=== PATIENT | male | born 1975 | race Caucasian/White ===

== ENCOUNTER 2020-08-21 18:07 | Emergency (ER) | payer MEDICARE, MEDICAID, SELFPAY ==
[2020-08-21 18:49] VITALS: BP 159/92; PULSE 92; RESP 17; TEMP 36.8; O2SAT 98; BMI 21.4
[2020-08-21 20:35] VITALS: BP 166/91; PULSE 102; RESP 17; TEMP 36.7
--- NOTE | 2020-08-21 21:25 | ED_ITS ---
HPI - Animal Bite General Chief Complaint: Animal Bite Stated Complaint: dog bite on mouth Time Seen by Provider: 08/21/20 19:08 Source: patient Mode of arrival: ambulatory Limitations: no limitations History of Present Illness HPI narrative: 45-year-old male presenting to the ED after he was bit by a dog while walking in the park. Reports he was walking in the park with his friend who had his dog and the dog that was in the park tried to bite his friend's dog therefore him and his friend tried to separate the dogs in the dog that was in the park bit him on the lower lip/left cheek. Patient denies any other injuries complaints or concerns at this time. Reports he is not up-to-date on the tetanus vaccine. Reports he is unsure if the dog was up-to-date on the rabies. The dog ran away shortly after. Related Data Previous Rx's Medication Instructions Recorded amoxicillin-pot clavulanate 1 tab PO Q12H 14 Days #28 tab 08/21/20 [Augmentin] Allergies Allergy/AdvReac Type Severity Reaction Status Date / Time No Known Allergies Allergy Verified 08/21/20 19:08 Review of Systems Review of Systems: Constitutional : No Fever, No Chills, Cardiovascular : No Chest Pain, No SOB Respiratory : No Dyspnea Gastrointestinal : No abdominal pain Musculoskeletal : No Joint Swelling Skin : + skin laceration, No Foreign bodies, No rash, No surrounding erythema Neuro : No Weakness, No Numbness/tingling Psych : No SI/HI/thoughts of self injury Yes all other systems are reviewed and are negative [facility] Past Medical History Attestation statement: The following information was validated with the patient. Medical History No known health problems Social History Social History Smoking Status: Never smoker Use of substances other than those prescribed or required for medical reasons: No Advance Directives: No Advance Directives Information Provided: No Physical Exam Vital Signs: Vital Signs: Vital Signs Temp Pulse Resp BP Pulse Ox 08/21/20 20:35 98.0 F 102 H 17 166/91 H 08/21/20 18:49 98.3 F 92 17 159/92 H 98 Body Mass Index 21.4 vital signs have been reviewed as normal and appeared to be correct. Blood pressure normal. Heart rate normal. Respiration rate normal. Temperature normal. Oxygen saturation normal. Appearance: Alert. Oriented X3. No acute distress. Head: Normal external exam. Normocephalic. Atraumatic. No Street signs noted. No raccoon eyes noted Eyes: PERRLA. EOMI. Conjunctiva and sclera normal. Eyelids normal. ENT: EAC normal. TM's Normal. Pharynx normal. Uvula midline. Moist mucous membranes. No trismus noted. No drooling noted. No muffled voice noted. To right lower lip/upper chin area there was noted to be an irregular 1 cm laceration bleeding controlled. to the left side of the cheek there is also another 1 cm lack no foreign bodies bleeding controlled. Neck: Normal inspection. Neck supple. FROM. No adenopathy. Thyroid Normal. No meningeal signs. No neck mass noted. CVS: Normal heart rate and rhythm. Heart sound normal. No murmurs noted. Pulses normal throughout. Respiratory: No respiratory distress. Painless inspiration. Breath sounds normal. No wheezes/rales/rhonchi noted. Chest nontender. No accessory muscle usage noted or decreased air movement noted. Back: Full range of motion noted. Skin: Skin warm and dry. Normal skin color. Normal skin turgor. No rashes noted. Extremities: No lower extremity edema. Extremities exhibit normal range of motion. Extremities nontender. Neuro: Oriented X 3. No motor deficit. No sensory deficit. Reflexes normal. Course Course Course Narrative: Patient is now status post laceration repair with loose sutures placed to lower lip and left side of cheek. Patient started on Augmentin. Tetanus updated at this time. Rabies vaccine and immunoglobulin given at this time. Will DC home with instructions return in 5 days for suture removal and to return sooner if any new or worsening symptoms. Patient and friend at bedside understand and agree plan. Procedures Laceration Laceration 1: Site: lip Size (cm): 1 Description: irregular Depth: simple, single layer Local Anesthetic: lidocaine 1% Amount of anesthesia used (mL): 3 Pre-repair: wound explored, irrigated extensively and deep structures i ntact Skin layer closed with: nylon Size (cm): 5-0 Number of sutures: 3 Technique: simple, interrupted Laceration 2: Site: face Side (If applicable): left Size (cm): 1 Description: linear Depth: simple, single layer Local Anesthetic: lidocaine 1% Amount of anesthesia used (mL): 2 Pre-repair: wound explored, irrigated extensively and deep structures intact Skin layer closed with: nylon Size (cm): 5-0 Number of sutures: 1 Technique: simple, interrupted Discharge Plan Discharge Clinical Impression: Laceration Dog bite Qualifiers: Encounter type: initial encounter Qualified Code(s): W54.0XXA - Bitten by dog, initial encounter Patient Disposition: Home, Self-Care Instructions: Animal Bite (ED), Facial Laceration (ED) Prescriptions: New amoxicillin-pot clavulanate [Augmentin] 875-125 mg tablet 1 tab PO Q12H 14 Days Qty: 28 RF: 0 Referrals: Lottie Langston PA [Emergency Midlevel Provider] - 08/26/20 (for suture removal ) Print Language: Senegalese
[2020-08-21] MEDS: Rabies Vaccine (PCEC)/PF 1 ML VIAL IM (21:47)
[2020-08-21] MEDS: Rabies Immune Globulin/PF 1,500 UNIT/5 ML VIAL 1065.04 UNIT IM (21:49)
[2020-08-21] MEDS: Lidocaine HCl 1 % MPF 5 ML VIAL SUBCUT (21:52)
[2020-08-21] MEDS: Amoxicillin/Potassium Clav 875 MG TABLET PO (21:53)
--- NOTE | 2020-08-22 07:54 | PC.NURSE ---
ADDENDUM: CALL PLACED TO [facility] TO UPDATE PTS FULL TELEPHONE NUMBER REQUESTED, MESSAGE LEFT. ALSO FAXED INFORMATION TO [phone] RN
== END 2020-08-21 22:15 | disposition home or self-care (01) ==
PROVIDERS: Emergency Provider Internal Medicine
DX: S00.571A Other superficial bite of lip, initial encounter (principal); S00.511A Abrasion of lip, initial encounter; G50.1 Atypical facial pain; K13.79 Other lesions of oral mucosa; W54.0XXA Bitten by dog, initial encounter; Y93.K1 Activity, walking an animal; Y92.830 Public park as the place of occurrence of the external cause; Y99.9 Unspecified external cause status; Z20.3 Contact with and (suspected) exposure to rabies; Z23 Encounter for immunization
CPT/HCPCS: 12011; 90375; 90471; 90472; 90675; 90715; 96372; 99284

== ENCOUNTER 2020-08-24 13:44 | Outpatient (REF) | payer MEDICARE, MEDICAID, SELFPAY | END 2020-08-24 13:45 | disposition home or self-care (01) | LOC: HO.MDS 13:44 | PROVIDERS: Visit Provider Physician Assistant Medical | DX: Z29.14 Encounter for prophylactic rabies immune globulin (principal); S01.551D Open bite of lip, subsequent encounter; W54.0XXD Bitten by dog, subsequent encounter; Z20.3 Contact with and (suspected) exposure to rabies | CPT/HCPCS: 90471; 90675 ==

== ENCOUNTER 2020-08-28 | Outpatient (REF) | payer MEDICARE, MEDICAID, SELFPAY | END 2020-08-28 00:01 | disposition home or self-care (01) | LOC: HO.MDS | PROVIDERS: Visit Provider Physician Assistant Medical | DX: Z29.14 Encounter for prophylactic rabies immune globulin (principal); S00.5 Superficial injury of lip and oral cavity; S00.87XD Other superficial bite of other part of head, subsequent encounter; W54.0XXD Bitten by dog, subsequent encounter; Z20.3 Contact with and (suspected) exposure to rabies | CPT/HCPCS: 90675; 96372 ==

== ENCOUNTER 2020-09-04 13:18 | Outpatient (REF) | payer MEDICARE, MEDICAID, SELFPAY | END 2020-09-04 13:19 | disposition home or self-care (01) | LOC: HO.MDS 13:18 | PROVIDERS: Visit Provider Physician Assistant Medical | DX: Z29.14 Encounter for prophylactic rabies immune globulin (principal); S01.551D Open bite of lip, subsequent encounter; W54.0XXD Bitten by dog, subsequent encounter; Z20.3 Contact with and (suspected) exposure to rabies | CPT/HCPCS: 90675; 96372 ==

== ENCOUNTER 2024-02-01 15:17 | Emergency (ER) | payer MEDICARE, MEDICAID, SELFPAY ==
[2024-02-01 15:23] VITALS: BP 150/92; PULSE 110; O2SAT 98
--- NOTE | 2024-02-01 15:25 | ED_ITS ---
HPI - General Adult General Chief complaint: Skin/Abscess/Foreign Body Stated complaint: DOG BITES TO BOTH ARMS AND FACE PER EMS Time Seen by Provider: 02/01/24 15:24 Source: patient and EMS Mode of arrival: EMS Limitations: no limitations History of Present Illness HPI narrative: Patient is a 48 year old assigned male at with a history of cognitive delay presenting to the emergency department today after being attacked by a dog. Patient states that his staff members dog attacked him while he was putting on his coat. Patient states that the dog is up to date on all it's vaccinations as far as he knows. Patient denies any loss of consciousness, dizziness, lightheadedness, abdominal pain, nausea, vomiting, fever, chills, blurry vision, double vision, loss of vision, chest pain, difficulty breathing, shortness of breath, back pain, night sweats, pain with urination, increased urinary frequency, increased urinary urgency, blood in his urine or stool, syncope or a near syncopal episode, bowel incontinence, bladder incontinence, bowel retention, bladder retention, or any other complaints at this time. Onset (ago): minute(s) Location: face, left, right and upper extremity Severity: moderate Severity scale (1-10): 5 Relieving factors: none Exacerbating factors: none Associated symptoms: denies other symptoms Treatments prior to arrival: none Related Data Previous Rx's ?Medication ?Instructions ?Recorded amoxicillin 875 mg-potassium 1 tab PO Q12H dog bite 14 days #28 08/21/20 clavulanate 125 mg tablet tabs (Augmentin) Allergies Allergy/AdvReac Type Severity Reaction Status Date / Time No Known Allergies Allergy Verified 02/01/24 16:13 Review of Systems 2 Constitutional: Constitutional: Reports no additional constitutional complaints, Denies chills, Denies fever(s) and Denies night sweats Eyes: Eyes: Reports no additional eye complaints, Denies blurry vision, Denies change in vision, Denies diplopia, Denies eye discharge, Denies loss of vision and Denies eye pain ENT: Denies dizziness Comments: dog bite to right cheek Cardiovascular: Cardiovascular: Reports no additional cardiovascular complaints, Denies chest pain, Denies lightheadedness, Denies Loss of Consciousness and Denies dyspnea Respiratory: Respiratory: Reports no additional respiratory complaints and Denies dyspnea Gastrointestinal: Gastrointestinal: Reports no additional gastrointestinal complaints, Denies abdominal pain, Denies melena, Denies hematochezia, Denies change in bowel habits and Denies change in stool character Genitourinary: Genitourinary: Reports no additional male genitourinary complaints, Denies hematuria, Denies oliguria, Denies difficulty urinating, Denies dysuria, Denies urinary frequency, Denies urinary hesitancy, Denies urinary incontinence and Denies urinary urgency Musculoskeletal: Musculoskeletal: Reports no additional musculoskeletal complaints, Denies numbness and Denies tingling Comments: dog bite to right and left hands Neurologic: Denies dizziness, Denies loss of vision, Denies numbness and Denies tingling Psychiatric: Psychiatric: Reports no additional psychiatric complaints Endocrine: Endocrine: Reports no additional endocrine complaints Hematologic/Lymphatic: Hematologic/Lymphatic: Reports no additional hematologic/lymphatic complaints Allergic/Immunologic: Allergic/Immunologic: Reports no additional allergic/immunologic complaints [facility] Past Medical History Attestation statement: The following information was validated with the patient. Source: old records reviewed and nursing notes reviewed Medical History No known health problems Social History Social History Advance Directives: No Advance Directives Information Provided: No Physical Exam ED Vital Signs: Vital Signs - 24 hr 02/01/24 16:11 Temperature 97.8 F Pulse Rate 120 H Respiratory Rate 20 Blood Pressure 131/87 Pulse Oximetry 96 Oxygen Delivery Method Room Air BMI result Body Mass Index 25.4 HENMT Other: Extrem Other: Medical Decision Making Medical Decision Making MDM Narrative: Patient is a 48 year old assigned male at with a history of cognitive delay presenting to the emergency department today with multiple dog bites. Patient's physical exam was as noted in the physical exam portion of this note. I called and spoke to Dr. Griffin at [facility] [place] who recommended an ED to ED transfer but not trauma consult / trauma service. I spoke to Dr. Montoya at the [facility] ED who agreed to transfer of the patient directly to the ED. I explained my physical exam findings to the patient. I answered all questions asked by the patient. Patient verbalized agreement and understanding with this treatment plan and transfer to [facility] ED. Differential Diagnosis Differential Diagnoses: The differential diagnosis associated with the presentation includes Dog bite Dog mauling Facial trauma Admission/Observation Consideration of admission/observation: Escalation of care including admission/observation considered Transferred to [facility] ED - accepted by Dr. Montoya. Consult Healthcare Provider Management of the patient was discussed with: Tube Rebuilder (spoke to Dr. Griffin and Dr. Montoya from [facility] [place] as noted in the MDM Rationale portion of this note) Independent Historian Clinical information obtained from an independent historian. History obtained from or confirmed by: EMS (EMS provided additional history and confirmed the history provided by the patient.) Discharge Plan Discharge Clinical Impression: Dog bite [facility] Prescriptions: No Action amoxicillin-pot clavulanate [Augmentin] 875-125 mg tablet 1 tab PO Q12H 14 Days Qty: 28 0RF Print Language: Puerto Rican
[2024-02-01 16:11] VITALS: BP 131/87; PULSE 120; RESP 20; TEMP 36.6; O2SAT 96; BMI 25.4
--- NOTE | 2024-02-01 16:15 | PC.NURSE ---
multiple dog bites to bilateral arms. dog bite noted to right cheek. wounds cleaned and re-wrapped. bleeding is controlled.
--- NOTE | 2024-02-01 17:58 | PC.NURSE ---
multiple attempts to reach [facility] ED to give report. patient in transport
[2024-02-01 18:49] VITALS: BP 00/00; PULSE 0; RESP 0; TEMP -17.7; TEMP 0
== END 2024-02-01 18:50 | disposition short-term general hospital (02) ==
PROVIDERS: Emergency Provider Emergency Medicine
DX: S01.451A Open bite of right cheek and temporomandibular area, initial encounter (principal); S51.852A Open bite of left forearm, initial encounter; S51.851A Open bite of right forearm, initial encounter; S61.452A Open bite of left hand, initial encounter; S61.451A Open bite of right hand, initial encounter; R41.89 Other symptoms and signs involving cognitive functions and awareness; W54.0XXA Bitten by dog, initial encounter; Y93.9 Activity, unspecified; Y92.9 Unspecified place or not applicable; Y99.9 Unspecified external cause status
CPT/HCPCS: 99285

== ENCOUNTER 2025-08-08 13:35 | Emergency (ER) | payer MEDICARE, MEDICAID, SELFPAY ==
[2025-08-08 13:55] VITALS: BP 131/77; PULSE 82; RESP 18; TEMP 36.6; O2SAT 98; BMI 22.4
--- NOTE | 2025-08-08 13:55 | ED.GENADULT ---
HPI - General Adult General Chief complaint: General Medical Stated complaint: Rash on face/chest Time Seen by Provider: 08/08/25 13:57 Source: patient and other (staff) Mode of arrival: ambulatory Limitations: no limitations History of Present Illness ED Provider: Alta[facility] narrative: Patient is a 49 year old male presenting to the ED with snf staff who reports that she noted a rash to his right arm, chest and face this morning. When he went to the day program, they wanted the patient evaluated to ensure that the rash was nothing contagious. Patient denies any itching or pain in areas of the rash. Staff denies any recent fevers. MD complaint: rash Onset (ago): hour(s) Related Data Previous Rx's ?Medication ?Instructions ?Recorded amoxicillin 875 mg-potassium 1 tab PO Q12H dog bite 14 days #28 08/21/20 clavulanate 125 mg tablet tabs (Augmentin) betamethasone valerate 0.1 % lotion 1 appl topical BID PRN skin 08/08/25 irritation #60 mL hydrocortisone 1 % topical cream 1 appl topical TID PRN skin 08/08/25 irritation #28.35 grams Allergies Allergy/AdvReac Type Severity Reaction Status Date / Time No Known Allergies Allergy Verified 08/08/25 13:56 Review of Systems Review of Systems: as per hpi Yes all other systems are reviewed and are negative Constitutional: Constitutional: Reports as per H[facility] Past Medical History Medical History No known health problems Social History Social History Advance Directives: No Advance Directives Information Provided: Yes Do you have a plan to hurt others: No Plan Physical Exam ED Vital Signs: Vital Signs - 24 hr 08/08/25 13:55 Temperature 98 F Pulse Rate 82 Respiratory Rate 18 Blood Pressure 131/77 Pulse Oximetry 98 Oxygen Delivery Method Room Air BMI result Body Mass Index 22.4 Vital signs have been reviewed and appear to be correct. Blood pressure normal. Heart rate normal. Respiratory rate normal. Temperature normal. Oxygen saturation normal. Const General: cooperative, healthy appearing and no acute distress Orientation/consciousness: oriented to person, oriented to place, oriented to time and patient oriented x3 Limitations: no limitations HENMT Head: Yes normocephalic and Yes atraumatic Ears: external ears normal General nose exam: Normal external nose present Face and sinus: Yes face symmetric Mouth: oropharynx normal and moist mucous membranes Throat: Yes uvula midline Eyes Pupils: Equal, round and reactive pupils present Neck Neck: Yes normal visual inspection and Yes supple Resp Effort & Inspection: normal respiratory effort and able to speak in complete sentences Auscultation: clear to auscultation bilaterally Cardio Rate: regular rate Rhythm: regular rhythm Heart sounds: S1 normal heart sound present and S2 normal heart sound present GI Palpation (GI): Soft to palpation and nontender Auscultation: normoactive bowel sounds General: Yes no CVA tenderness Back/Spine/Pelvis Back: no CVA tenderness Skin Other: erythematous plaques to chin, chest, right anterior forearm General skin exam: elasticity normal and turgor normal Neuro General: oriented to person, oriented to place, oriented to time, patient oriented x3, moves all extremities, no focal motor deficits and CN's II-XI intact bilaterally Cranial nerves: Yes Equal, round and reactive pupils present Cognition (Neuro): normal cognition Extrem General: Yes full ROM, Yes no pedal edema and Yes no calf tenderness Psych Mental Status: mental status grossly normal Affect: normal affect Thought process: Normal thought process present Medical Decision Making Medical Decision Making [facility] Narrative: Patient is a 49 year old male presenting to the ED with snf staff who reports that she noted a rash to his right arm, chest and face this morning. On exam patient is awake, A+Ox3, VS WNL, afebrile, normal neurological exam without focal deficits, physical exam findings as above. Given reported symptoms and physical exam findings, initial differential includes but is not limited to atopic dermatitis, contact dermatitis. Do not suspect TEN/SJS, DRESS, TTP/DIC, necrotizing fasciitis, meningococcemia, SSSS, TSS, anaphylaxis. Will treat with betamethasone for face, hydrocortisone for chest, arms. Follow up with PCP. Return precautions discussed. Patient verbalized understanding of and agreement with plan. Differential Diagnosis Differential Diagnoses: The differential diagnosis associated with the presentation includes as per mdm Admission/Observation Consideration of admission/observation: Escalation of care including admission/observation considered Patient would have been admitted to the hospital and transferred to appropriate facility had their clinical presentation warranted hospital admission. External Record Review External record reviewed: Inpatient record, Office record and Outpatient record Prescription Management I considered prescription management with: Other Discharge Plan Discharge Clinical Impression: Atopic dermatitis Patient Disposition: Home, Self-Care Instructions: Eczema (ED) Additional Instructions: You were evaluated in the emergency department today for a rash. Your evaluation did not reveal evidence of conditions requiring emergent medical treatment. You are being prescribed two different steroid creams. BETAMETHASONE IS FOR YOUR FACE. HYDROCORTISONE IS FOR YOUR BODY ONLY-DO NOT APPLY THE HYDROCORTISONE TO YOUR FACE. We also recommend that you take a daily antihistamine such as loratadine (Claritin) or cetirizine (Zyrtec). Follow up with your primary care provider this week. If your symptoms do not improve, follow up with a woodworker. Return to the emergency department if you develop difficulty breathing or shortness of breath, swelling to lips, tongue, fever, rash inside your mouth or to your palms/soles or any other concerning symptoms. Prescriptions: New betamethasone valerate 0.1 % lotion 1 appl topical BID PRN (Reason: skin irritation) Qty: 60 0RF hydrocortisone 1 % cream 1 appl topical TID PRN (Reason: skin irritation) Qty: 28.35 0RF No Action amoxicillin-pot clavulanate [Augmentin] 875-125 mg tablet 1 tab PO Q12H 14 Days Qty: 28 0RF Print Language: Greek
[2025-08-08 15:47] VITALS: BP 131/77; PULSE 82; RESP 18; TEMP 36.6; O2SAT 98
== END 2025-08-08 15:47 | disposition home or self-care (01) ==
PROVIDERS: Emergency Provider Emergency Medicine; PCP Nurse Practitioner Family
DX: L20.9 Atopic dermatitis, unspecified (principal)
CPT/HCPCS: 99282; 99283